=== PATIENT | female | born 1955 | race American Indian/Alaskan Native ===

== ENCOUNTER 2019-05-13 09:52 | Emergency (ER) | payer MEDICARE ==
--- NOTE | 2019-05-13 10:26 | Emergency Department Report ---
ED Chest Pain HPI - General Stated Complaint: HTN/HARPAL/CHEST PAIN Time Seen by Provider: 05/13/19 10:12 - History of Present Illness Initial Comments: 63-year-old female presents to ED with complaint of chest pain, onset this morning. Patient is currently a patient at [facility]. States she was admitted for depression, suicide attempt over the weekend. Patient states blood pressure was elevated at [place], with systolic BP in the 200s. Patient states pain is located in the left chest radiating into the left arm. Reports some shortness of breath. Denies any nausea, vomiting or diaphoresis. Patient reports she was admitted at [facility] 2 weeks ago and underwent stress testing which was normal and echocardiogram which showed an enlarged heart. Patient reports she is currently taking Eliquis for PE. 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 In October 2018, patient reports she developed another right-sided PE, and was switched to Eliquis at that time. Patient denies tobacco use. Reports alcohol use. Reports crack cocaine use, last of which was 3 weeks ago. MD Complaint: chest pain -: This morning Onset: during rest Pain Location: left chest Pain Radiation: LUE Severity: mild Quality: tightness Consistency: constant Improves With: nothing Worsens With: nothing re: denies: nausea, vomting, diaphoresis, dyspnea Other Symptoms: palpitations. denies: cough, fever - Related Data Allergies Allergy/AdvReac Type Severity Reaction Status Date / Time levetiracetam [From [facility]] Allergy Hives Verified 05/13/19 10:27 shellfish derived Allergy Vomiting Verified 05/13/19 10:27 Heart Score - HEART Score History: Slightly suspicious EKG: Normal Age: 45-65 Risk factors: 1-2 risk factors Troponin: < normal limit HEART Score: 2 ED Review of Systems ROS: Stated complaint: HTN/HARPAL/CHEST PAIN Other details as noted in HPI Comment: All other systems reviewed and negative Constitutional: denies: chills, fever Respiratory: denies: shortness of breath Cardiovascular: chest pain, palpitations Gastrointestinal: denies: nausea, vomiting Musculoskeletal: other (denies leg pain or swelling) Psychiatric: depression ED Physical Exam - General General appearance: alert, in no apparent distress - Head Head exam: Present: atraumatic, normocephalic - Eye Eye exam: Present: normal appearance, PERRL, EOMI - ENT ENT exam: Present: mucous membranes moist - Neck Neck exam: Present: normal inspection - Respiratory Respiratory exam: Present: normal lung sounds bilaterally. Absent: respiratory distress - Cardiovascular Cardiovascular Exam: Present: regular rate, normal rhythm - GI/Abdominal GI/Abdominal exam: Present: soft. Absent: distended, tenderness - Extremities Exam Extremities exam: Absent: pedal edema, calf tenderness - Neurological Exam Neurological exam: Present: alert, oriented X3, CN II-XII intact. Absent: motor sensory deficit - Psychiatric Psychiatric exam: Present: normal affect, normal mood - Skin Skin exam: Present: warm, dry, intact, normal color ED Course Vital Signs 05/13/19 05/13/19 05/13/19 09:56 10:00 10:06 Temperature 97.3 F L Pulse Rate 79 76 72 Respiratory 10 L 17 14 Rate Blood Pressure 117/52 121/53 Blood Pressure 121/53 [Left] O2 Sat by Pulse 94 97 Oximetry 05/13/19 05/13/19 05/13/19 10:15 10:21 10:22 Temperature Pulse Rate 77 72 Respiratory 12 14 Rate Blood Pressure 121/53 Blood Pressure [Left] O2 Sat by Pulse 100 Oximetry 05/13/19 05/13/19 05/13/19 10:31 10:45 11:01 Temperature Pulse Rate 73 68 70 Respiratory 17 16 18 Rate Blood Pressure 133/61 122/54 113/58 Blood Pressure [Left] O2 Sat by Pulse 90 93 91 Oximetry 05/13/19 05/13/19 05/13/19 11:15 11:31 11:45 Temperature Pulse Rate 65 64 65 Respiratory 16 16 16 Rate Blood Pressure 113/58 126/63 126/63 Blood Pressure [Left] O2 Sat by Pulse 95 93 98 Oximetry ED Medical Decision Making - Lab Data Result diagrams: 05/13/19 10:27 05/13/19 10:27 - EKG Data -: EKG Interpreted by Tn EKG shows normal: sinus rhythm, axis, intervals, QRS complexes, ST-T waves Rate: normal - EKG Data Interpretation: no acute changes - Radiology Data Radiology results: report reviewed, image reviewed - Medical Decision Making 63-year-old female presents to ED with chest pain. Pain is currently resolved. EKG and troponin is unremarkable. She states she recently had a stress test and echocardiogram 2 weeks ago in [place]. States stress test was normal. Patient is currently on blood thinners for PE. I have a low suspicion that patient has a new, acute pulmonary embolus. Patient is not hypoxic, in no respiratory distress. O2 sats normal 98% on room air. Patient is feeling much better, is requesting discharge. Will discharge at this time. Vitals are stable and workup is unremarkable. Patient advised to follow with her PCP. Return precautions given. - Differential Diagnosis ACS, pneumonia, PE Critical care attestation.: If time is entered above; I have spent that time in minutes in the direct care of this critically ill patient, excluding procedure time. ED Disposition Clinical Impression: Chest pain Disposition: DC-01 TO HOME OR SELFCARE Is pt being admited?: No Condition: Stable Instructions: Chest Pain (ED) Referrals: ANANYA JUAN MD [Primary Care Provider] - 3-5 Days PRIMARY CARE, [Referring] - 3-5 Days Time of Disposition: 11:57
[2019-05-13 10:55] LABS: Basophils # (Auto) 0.1 K/mm3 (0.0-0.1); Basophils % (Auto) 0.9 % (0.0-1.8); Eosinophils % (Auto) 0.3 % (0.0-4.3); Hematocrit 34.8 % (30.3-42.9); Hemoglobin 11.6 gm/dl (10.1-14.3); Lymphocytes # (Auto) 1.5 K/mm3 (1.2-5.4); Mean Corpuscular HGB Conc 33 % (30-34); Mean Corpuscular Volume 91 fl (79-97); Monocytes # (Auto) 0.6 K/mm3 (0.0-0.8); Monocytes % (Auto) 7.4 % (0.0-7.3); Platelet Count 253 K/mm3 (140-440); Red Blood Count 3.81 M/mm3 (3.65-5.03); Red Cell Distribution Width 15.1 % (13.2-15.2)
[2019-05-13 11:04] LABS: INR 0.99 (0.87-1.13); Partial Thromboplastin Time 21.5 Sec. (24.2-36.6)
[2019-05-13 11:16] LABS: BUN/Creatinine Ratio 25; Blood Urea Nitrogen 25 mg/dL (7-17); Calcium 9.5 mg/dL (8.4-10.2); Hemolysis Index 3
[2019-05-13] MEDS ORDERED: ATROPINE ONE (11:40)
[2019-05-13 11:53] VITALS: BP 126/63
== END 2019-05-13 12:48 | disposition home or self-care (01) ==
LOC: ED 09:52
DX: R07.89 Other chest pain (principal); R03.0 Elevated blood-pressure reading, without diagnosis of hypertension; R06.02 Shortness of breath; R00.2 Palpitations; F32.9 Major depressive disorder, single episode, unspecified
CPT/HCPCS: 36415; 80048; 82962; 84484; 85025; 85610; 85730; 93005; 93010; 99284; J0461